=== PATIENT | female | born 1930 | race Caucasian/White ===

== ENCOUNTER → 2016-10-31 | Outpatient (CLI) | payer OTHER ==
[~2016-10-31] MED LIST: AMBIEN CR 12.12.5 MG PO; ASPIR-LOW81 MG PO; ASPIRIN E.C. 8181 MG PO; ATIVAN 0.50.5 MG/TAB PO; ATIVAN2 MG PO; BENAZEPRIL; BUMEX 1MG TA1 MG/TA1 PO; BUMEX1 MG PO; CELEBREX 200MG200 MG PO; COLACE 100100 MG/CAP PO; COUMADIN 3MG3 MG/TAB PO; FLECTOR1.3% TP; FOLIC ACID 40400 MCG PO; LOTENSIN40 MG PO; MILK OF MA400 MG/5 M PO; MIRALAX 17GM PK1 PKT PO; MIRALAX PA17 GM/Dose PO; NEXIUM 40MG40 MG PO; NITROQUICK0.4 MG SL; NITROSTAT0.4 MG/TAB SL; NORCO 325 MG-7.1 TAB PO; NORVASC 10MG10 MG PO; NORVASC10 MG PO; POLY IRON PN1 TAB PO; ROXICODONE 55 MG/TAB PO; SENOKOT8.6 MG PO; TYLENOL EXTRA500 M1 PO; VITAMIN C500 MG PO; XARELTO10 MG PO
== END ==
LOC: MC.RAD 13:58
DX: Z12.31 Encounter for screening mammogram for malignant neoplasm of breast (principal); Z80.3 Family history of malignant neoplasm of breast

== ENCOUNTER 2017-04-19 09:00 | Outpatient (RCR) | payer MEDICARE, OTHER | END 2017-05-16 16:03 | LOC: WSPT 09:00 | DX: H81.12 Benign paroxysmal vertigo, left ear (principal) | CPT/HCPCS: G8981-GP; G8982-GP ==

== ENCOUNTER → 2018-07-08 | Outpatient (CLI) | payer MEDICARE ==
[~2018-07-08] MED LIST changes: +ASPIRIN 81M81 MG/TA2 PO; +K-DUR20 MEQ PO; +MASON NATURAL2000 IU PO; +MOTRIN 600600 MG/TAB PO; +NORCO 325 MG-51 TAB PO; +NORVASC 5MG5 MG/TAB PO; +TYLENOL 325MG325 MG PO
== END ==
LOC: MC.RAD 10:13
DX: Z12.31 Encounter for screening mammogram for malignant neoplasm of breast (principal)

== ENCOUNTER 2018-09-25 13:00 | Outpatient (RCR) | payer MEDICARE | END 2018-11-03 09:23 | disposition home or self-care (01) | LOC: WSPT 13:00 | DX: R29.6 Repeated falls (principal) ==

== ENCOUNTER → 2018-11-19 | Outpatient (CLI) | payer MEDICARE ==
[2018-11-19 16:37] LABS: HEMATOCRIT 37.8 % (37.0-47.0); HEMOGLOBIN 12.9 g/dl (12.5-16.0); MEAN CELL VOLUME 93 fl (80.0-100.0); MEAN CORPUSCULAR HEMOGLOBIN 32 pg (27.0-31.0); MEAN CORPUSCULAR HGB CONC 34 g/dl (33.0-37.0); MEAN PLATELET VOLUME 8.8 fl (7.4-10.4); PLATELET COUNT 194 K/mm3 (130-400); RED BLOOD COUNT 4.08 M/mm3 (4.10-5.30); REDCELL DISTRIBUTION WIDTH-CV 16.3 % (11.5-14.5)
[2018-11-19 17:00] LABS: ERYTHROCYTE SEDIMENTATION RATE 9 mm/hr (0-30)
== END ==
LOC: COL.LAB 16:10
PROVIDERS: Orthopaedic Surgery
DX: M25.561 Pain in right knee (principal); Z96.651 Presence of right artificial knee joint

== ENCOUNTER → 2018-12-03 | Outpatient (CLI) | payer MEDICARE | LOC: COL.RAD 07:40 | DX: K30 Functional dyspepsia (principal); R68.81 Early satiety | CPT/HCPCS: A9541 ==

== ENCOUNTER 2020-04-14 12:45 | Outpatient (RCR) | payer MEDICARE ==
[2020-04-19] MEDS ORDERED: ATIVAN 0.50.5 MG/TAB PO (08:56)
[2020-04-19] MEDS ORDERED: AMBIEN 5MG TABLE5 MG PO (08:56)
[2020-04-19] MEDS ORDERED: ROXICODONE 55 MG/TAB PO (08:56)
[2020-04-19] MEDS ORDERED: SALONPAS1 EACH TP (08:59)
[2020-04-19] MEDS ORDERED: OMNICEF 300MG300 MG PO (11:06)
[2020-04-20] MEDS ORDERED: OMNICEF 300MG300 MG PO (09:10)
[2020-04-20] MEDS ORDERED: VOLTAREN GEL 1%1 TU TP (09:16)
[2020-04-20] MEDS ORDERED: SENOKOT S 50 MG1 TAB PO (09:16)
[2020-04-22] MEDS ORDERED: AMBIEN 5MG TABLE5 MG PO (17:53)
[2020-04-22] MEDS ORDERED: ATIVAN 0.50.5 MG/TAB PO (17:53)
[2020-04-22] MEDS ORDERED: ROXICODONE 55 MG/TAB PO (17:53)
[2020-04-23] MEDS ORDERED: VALIUM 2MG T2 MG/TAB PO ×2 (22:18)
[2020-05-02] MEDS ORDERED: ATIVAN 0.50.5 MG/TAB PO (13:52)
[2020-05-02] MEDS ORDERED: MELATONIN3 M1 PO (13:53)
[2020-05-02] MEDS ORDERED: MEDROL 4MG DOSPA4 MG PO (13:54)
[2020-05-02] MEDS ORDERED: NORCO 325 MG-51 TAB PO (13:57)
[2020-05-02] MEDS ORDERED: FLEXERIL 1010 MG/TAB PO (14:00)
[2020-05-02] MEDS ORDERED: LASIX 20MG TABL20 MG PO (14:02)
[2020-05-02] MEDS ORDERED: SENOKOT S 50 MG1 TAB PO (14:03)
== END 2020-06-02 10:09 | disposition home or self-care (01) ==
LOC: WSPT 12:45
DX: M62.81 Muscle weakness (generalized) (principal)

== ENCOUNTER 2020-04-22 11:58 | Emergency (ER) | payer MEDICARE ==
[~2020-04-22] VITALS: Ht 160 cm; Wt 75.0 kg
[~2020-04-22 11:58] MED LIST changes: +AMBIEN 5MG TABLE5 MG PO; +OMNICEF 300MG300 MG PO; +SALONPAS1 EACH TP; +SENOKOT S 50 MG1 TAB PO; +VOLTAREN GEL 1%1 TU TP
[2020-04-22 11:59] VITALS: TEMP 97.3
--- NOTE | 2020-04-22 13:38 | NUR ---
ESTELA responded to ED consult. The patient presented from [facility]. The patient recently discharged from the hospital, 04/20, and went to [facility] for a skilled stay. ESTELA met with the patient. The patient reports that she is still having extreme back pain. She states that she is not happy with the night staff's attentiveness at [facility] and would prefer to stay in the hospital, if possible. ESTELA staffed with the patient's RN and ED doc. The patient is medically stable and will not be admitted to the hospital. ESTELA consulted [facility] Director, Lucie. Lucie reports that she is not able to accept any patient's at this time. ESTELA updated the patient. The patient reports that she would be interested in tranferring care to [facility]. ESTELA informed the patient that this SW can send a referral to [facility], but if not able to accept today, then the patient has safe d/c plan returning back to [facility]. The patient verbalized understanding and was agreeable to this. ESTELA contacted and faxed a referral to Liv at [facility]. The patient has Medicare [employer]. Awaiting screen and auth. ESTELA contacted and updated Rudy at [facility]. Rudy reports that they are able to accept the patient back. ESTELA contacted and updated the patient's son, Martell. Martell verbalized understanding and was agreeable to the plan.
--- NOTE | 2020-04-22 16:05 | NUR ---
Liv, at [facility], reports that they are able to accept the patient. She states that they do not have formal auth yet, but do not see any issues with them approving a stay, since they are in-network. Liv states that they can take the patient today, as long as the patient is aware and okay with this. ESTELA met with the patient to inform. The patient verbalized understanding and reports that she would like to go ahead and move forward with [facility]. ESTELA contacted and informed the patient's son, Martell, of this. Martell was supportive of the patient's decision and agreeable to move forward. The patient is to discharge from the ED today, 04/22, to [facility] for an emergency admit skilled stay. Transportation to be provided by [facility]. ESTELA presented and read the EMS Transfer Consent Forms outloud to the patient. The patient verbalized understanding and gave SW approval to sign the form on her behalf. ESTELA notified the patient's son, Martell, of tentative transport time. Martell was agreeable to transfer time. ESTELA updated Rudy at [facility]. No additional needs at this time.
[2020-04-22 16:19] VITALS: BP 132/68; PULSE 83
[2020-04-22] MEDS ORDERED: ATIVAN 0.50.5 MG/TAB PO (17:53)
[2020-04-22] MEDS ORDERED: AMBIEN 5MG TABLE5 MG PO (17:53)
[2020-04-22] MEDS ORDERED: ROXICODONE 55 MG/TAB PO (17:53)
[2020-04-23] MEDS ORDERED: VALIUM 2MG T2 MG/TAB PO (22:18)
== END 2020-04-22 16:30 | disposition home or self-care (01) ==
LOC: COL.ER 11:58
DX: M54.10 Radiculopathy, site unspecified (principal); Z20.828 Contact with and (suspected) exposure to other viral communicable diseases; Z79.82 Long term (current) use of aspirin
CPT/HCPCS: J1885

== ENCOUNTER 2020-04-23 20:16 | Emergency (ER) | payer MEDICARE ==
[~2020-04-23] VITALS: Ht 160 cm; Wt 75.0 kg
[2020-04-23 20:19] VITALS: BP 149/74; TEMP 98
[2020-04-23 21:05] LABS: BASO % 0.2 % (0.0-2.0); GRAN # 3.2 (1.4-6.5); GRAN % 51.4 % (42.2-75.2); HEMATOCRIT 41.8 % (37.0-47.0); HEMOGLOBIN 14.5 g/dl (12.5-16.0); LYMPH # 2.4 (1.2-3.4); LYMPH % 37.9 % (20.0-51.0); MEAN CELL VOLUME 93 fl (80.0-100.0); MEAN CORPUSCULAR HEMOGLOBIN 32 pg (27.0-31.0); MEAN CORPUSCULAR HGB CONC 35 g/dl (33.0-37.0); MEAN PLATELET VOLUME 8.8 fl (7.4-10.4); MONO # 0.6 (0.1-0.6); MONO % 10.2 % (1.7-9.3); PLATELET COUNT 205 K/mm3 (130-400); RED BLOOD COUNT 4.51 M/mm3 (4.10-5.30); REDCELL DISTRIBUTION WIDTH-CV 15.9 % (11.5-14.5)
[2020-04-23 21:08] LABS: ALBUMIN 4.1 gm/dL (3.5-5.0); BILIRUBIN,TOTAL 1.5 mg/dL (0.0-1.0); CALCIUM 9.4 mg/dL (8.4-10.2); CREATININE, serum 1.25 (0.52-1.25); POTASSIUM 4.2 mmol/L (3.4-5.0); TOTAL PROTEIN 6.9 gm/dL (6.4-8.2)
[2020-04-23] MEDS ORDERED: VALIUM 2MG T2 MG/TAB PO (22:18)
[2020-04-23 22:49] VITALS: PULSE 62
== END 2020-04-23 22:49 | disposition home or self-care (01) ==
LOC: COL.ER 20:16
PROVIDERS: Emergency Medicine
DX: M54.16 Radiculopathy, lumbar region (principal); E11.9 Type 2 diabetes mellitus without complications; Z85.528 Personal history of other malignant neoplasm of kidney; Z79.82 Long term (current) use of aspirin; Z79.84 Long term (current) use of oral hypoglycemic drugs
CPT/HCPCS: J1170; J3010; J3360; J7030